=== PATIENT | male | born 1975 | race Caucasian/White ===

== ENCOUNTER 2016-10-10 00:12 | Emergency (ER) | payer SELFPAY ==
[~2016-10-10] VITALS: Ht 180.3 cm; Wt 79.4 kg
[~2016-10-10 00:12] MED LIST: CYCL10TA9 PO; HCT25T PO; HYDR-3456 PO; METH4TAB PO
--- OUTSIDE RECORDS SUMMARY | 2016-10-10 00:20 | XMS REPORT ---
Author BRADLEY Yen [facility] [place] eClinicalWorks Address Unknown Phone Unavailable Care Team Providers Care Mechanical Tech Name Role Phone BRADLEY BELTRAN CP Unavailable Allergies No Known Allergies Problems Problem Type Condition Code Onset Dates Condition Status Problem Low back pain M54.5 Active Problem Family history of diabetes mellitus Z83.3 Active Problem Essential hypertension I10 Active Medications No Known Medications Results No Known Results Summary Purpose eClinicalWorks Submission
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
[2016-10-10] MEDS ORDERED: BENZ-13 PO (01:27)
[2016-10-10] MEDS ORDERED: DOXY100C42 PO (01:27)
[2016-10-10] MEDS ORDERED: LORA1TAB59 PO (01:27)
[2016-10-10] MEDS ORDERED: cefTRIAXone 1 GM (ROCEPHIN) VIAL IM ONE (01:30)
[2016-10-10] MEDS ORDERED: BENZONATATE 100 MG (TESSALON) CAPSULE PO SCH (01:30)
[2016-10-10] MEDS ORDERED: LIDOCAINE 1% INJ 20 ML (XYLOCAINE) VIAL INJ ONE (01:30)
[2016-10-10 01:52] VITALS: BP 114/88
== END 2016-10-10 01:52 | disposition home or self-care (01) ==
LOC: EDUNIT# 00:12 → ER 00:16
DX: J40 Bronchitis, not specified as acute or chronic (principal); J01.90 Acute sinusitis, unspecified
CPT/HCPCS: 87804; 96372; 99283

== ENCOUNTER 2017-06-19 02:02 | Emergency (ER) | payer MEDICAID, OTHER ==
[~2017-06-19] VITALS: Ht 180.3 cm; Wt 78.0 kg
[~2017-06-19 02:02] MED LIST changes: +BENZ-13 PO; +DOXY100C42 PO; +LORA1TAB59 PO
--- OUTSIDE RECORDS SUMMARY | 2017-06-19 02:10 | XMS REPORT ---
Author BRADLEY Yen [facility] eClinicalWorks Address Unknown Phone Unavailable Care Team Providers Care School Aide Name Role Phone BRADLEY BELTRAN CP Unavailable Allergies No Known Allergies Problems Problem Type Condition Code Onset Dates Condition Status Problem Low back pain M54.5 Active Problem Family history of diabetes mellitus Z83.3 Active Problem Essential hypertension I10 Active Medications No Known Medications Results No Known Results Summary Purpose eClinicalWorks Submission
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
[2017-06-19] MEDS ORDERED: SULF1TAB35 PO (03:29)
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
[2017-06-19] MEDS ORDERED: TRIM/SULFAMETH 160/800 (SEPTRA DS) TAB PO ONE (03:30)
[2017-06-19] MEDS ORDERED: CLOT30CR37 TP (03:30)
[2017-06-19 03:34] VITALS: BP 0/0
== END 2017-06-19 03:34 | disposition home or self-care (01) ==
LOC: EDUNIT# 02:02 → ER 02:06
DX: B35.3 Tinea pedis (principal); I10 Essential (primary) hypertension; B19.20 Unspecified viral hepatitis C without hepatic coma; F17.210 Nicotine dependence, cigarettes, uncomplicated; Z90.89 Acquired absence of other organs; Z98.890 Other specified postprocedural states; Z86.03 Personal history of neoplasm of uncertain behavior; Z87.81 Personal history of (healed) traumatic fracture
CPT/HCPCS: 99283